=== PATIENT | female | born 1945 | race Caucasian/White ===

== ENCOUNTER → 2019-04-17 | Outpatient (CLI) | payer OTHER ==
--- NOTE | 2019-04-17 13:00 | 2DMMODE ---
[facility] [address] [place] [address] 2 D/M-MODE ECHOCARDIOGRAM Name: BASSAM LOVE ANN Room #: REG Dalia#: [id number] Admission: 04/17/19 Attend Phys: Aki Jamison Discharge: Date of : 41 Report #: [id number] THIS REPORT FOR: //name// APPROVED REPORT Study performed: 04/17/2019 10:54:07 EXAM: Comprehensive 2D, Doppler, and color-flow Echocardiogram Patient Location: Out-Patient Status: routine BSA: 1.95 HR: 91 bpm BP: 127/88 mmHg Rhythm: NSR Other Information Study Quality: Adequate Indications Elevated calcium score. HTN, HLP. 2D Dimensions RVDd: 31.62 mm IVSd: 10.30 (7-11mm) LVOT Diam: 18.87 (18-24mm) LVDd: 39.01 mm PWd: 9.91 (7-11mm) Ascending Ao: 29.04 (22-36mm) LVDs: 27.15 (25-40mm) Aortic Root: 32.30 mm Volumes Left Atrial Volume (Systole) Single Plane 4CH: 40.44 mL Single Plane 2CH: 40.90 mL LA ESV Index: 23.00 mL/m2 Aortic Valve AoV Peak Elijah.: 1.44 m/s AO Peak Gr.: 8.32 mmHg LVOT Max P.27 mmHg LVOT Max V: 1.03 m/s [place] Vmax: 2.00 cm2 Mitral Valve E/A Ratio: 0.9 MV Decel. Time: 188.85 ms MV E Max Elijah.: 1.02 m/s [facility] [address] [place] [address] 2 D/M-MODE ECHOCARDIOGRAM Name: BASSAM LOVE Room #: REG CL Dalia#: [id number] Admission: 04/17/19 Attend Phys: Aki Jamison Discharge: Date of : 41 Report #: [id number] MV A Elijah.: 1.12 m/s MV PHT: 54.77 ms IVRT: 72.66 ms Pulmonary Valve PV Peak Eljiah.: 1.21 m/s PV Peak Gr.: 5.82 mmHg Pulmonary Vein P Vein S: 0.56 m/s P Vein D: 0.46 m/s P Vein S/D Ratio: 1.22 Tricuspid Valve TR Peak Elijah.: 2.33 m/s RAP Estimate: 5.00 mmHg TR Peak Gr.: 22.00 mmHg PA Pressure: 27.00 mmHg Left Ventricle The left ventricle is normal size. There is normal LV segmental wall motion. Mild basal septal hypertrophy is present. Left ventricular systolic function is normal. LVEF is 60-65%. Mild diastolic dysfunction is present (impaired relaxation pattern). Right Ventricle The right ventricle is normal size. The right ventricular systolic function is normal. Atria The left atrium size is normal. The right atrium size is normal. Aortic Valve The aortic valve is normal in structure. Leaflets are mildly thickened. Trace aortic regurgitation. There is no aortic valvular stenosis. Mitral Valve The mitral valve is normal in structure. Mild mitral regurgitation. Tricuspid Valve The tricuspid valve is normal in structure. Mild tricuspid regurgitation. Estimated PAP is 25-30mmHg. Pulmonic Valve The pulmonary valve is normal in structure. There is no pulmonic [facility] [address] [place] [address] 2 D/M-MODE ECHOCARDIOGRAM Name: BASSAM LOVE ANN Room #: FRANCISCO JAVIER Gómez#: [id number] Admission: 04/17/19 Attend Phys: Aki Jamison Discharge: Date of : 41 Report #: [id number] valvular regurgitation. Great Vessels The aortic root is normal in size. The ascending aorta is normal in size. IVC is normal in size and collapses >50% with inspiration. Pericardium There is no pericardial effusion. <Conclusion> The left ventricle is normal size. LVEF is 60-65%. The aortic valve is normal in structure. Leaflets are mildly thickened. Trace aortic regurgitation. The mitral valve is normal in structure. Mild mitral regurgitation. The tricuspid valve is normal in structure. Mild tricuspid regurgitation. Estimated PAP is 25-30mmHg. The pulmonary valve is normal in structure. There is no pulmonic valvular regurgitation. <ELECTRONICALLY SIGNED> By: Aki Ashley MD 04/17/19 [id number] Aki Ashley MD /INF
== END ==
LOC: CV 03-28 10:52
DX: I08.1 Rheumatic disorders of both mitral and tricuspid valves (principal); I10 Essential (primary) hypertension; E78.5 Hyperlipidemia, unspecified; E11.9 Type 2 diabetes mellitus without complications; Z79.4 Long term (current) use of insulin; Z79.899 Other long term (current) drug therapy

== ENCOUNTER → 2019-05-25 | Outpatient (CLI) | payer OTHER | LOC: SJCVC 10:02 | DX: I10 Essential (primary) hypertension (principal); I25.10 Atherosclerotic heart disease of native coronary artery without angina pectoris; I49.9 Cardiac arrhythmia, unspecified; E11.9 Type 2 diabetes mellitus without complications; K21.9 Gastro-esophageal reflux disease without esophagitis; E03.9 Hypothyroidism, unspecified; G47.30 Sleep apnea, unspecified; Z79.82 Long term (current) use of aspirin; Z79.899 Other long term (current) drug therapy ==